=== PATIENT | male | born 1950 | race Hispanic/Latino ===

== ENCOUNTER 2021-02-23 07:11 | Inpatient (IN) | payer MEDICARE, MEDICAID ==
[2021-02-23] MEDS ORDERED: Dextrose 5% in Water 1,000 ML IV PRN (07:45)
[2021-02-23] MEDS ORDERED: Dextrose 50% Abboject 50 ML SYRINGE SLOW IVP PRN (07:45)
[2021-02-23] MEDS ORDERED: HumaLOG 300 UNITS/3 ML VIAL SC PRN (07:45)
[2021-02-23] MEDS: predniSONE 20 MG TAB PO SCH (09:11)
[2021-02-23 09:52] VITALS: BMI 18.2
[2021-02-23] MEDS: Azithromycin 500 MG in Sodium Chloride 0.9% 250 ML 250 ML IVPB SCH (10:03)
[2021-02-23] MEDS ORDERED: Fluticasone Propionate Nasal Spray 16 gm Bottle NASAL PRN (18:39)
[2021-02-23] MEDS ORDERED: Ondansetron ODT 4 MG TAB PO PRN (18:41)
[2021-02-23] MEDS: Acetaminophen 325 MG TAB PO PRN (20:14)
[2021-02-23] MEDS: Lisinopril 20 MG TAB PO SCH (20:17)
[2021-02-23] MEDS: Famotidine 20 MG TAB PO SCH (20:17)
[2021-02-23 20:53] LABS: SARS-CoV-2 PCR by NAA Not Detected (NotDetected)
[2021-02-24 04:43] LABS: #Eosinphils 0.1 10x3/uL (0.0-0.5); #Monocytes 1.5 10x3/uL (0.0-1.1); #Neutrophils 8.6 10x3/uL (1.5-8.4); %Basophils 0.2 % (0.0-2.0); %Eosinophils 0.5 % (0.0-6.0); %Lymphocytes 19.7 % (18.0-47.0); %Monocytes 11.6 % (0.0-10.0); %Neutrophils 67.7 % (40.0-75.0); Hemoglobin 10.2 g/dL (13.5-17.5); Mean Corpuscular HGB CONC 32.2 g/dL (32.0-36.0); Mean Corpuscular Hemoglobin 29.3 pg (27.0-33.0); Mean Corpuscular Volume 91.1 fl (81.2-95.1); Mean Platelet Volume 10.6 fl (7.4-10.4); Platelet Count 267 10x3/uL (150-450); RBC Distribution Width 14.8 % (11.5-14.5); Red Blood Cell (RBC) Count 3.48 10x6/uL (4.32-5.72); White Blood Cell (WBC) Count 12.7 10x3/uL (3.5-10.5)
[2021-02-24 05:13] LABS: Anion Gap 10 mmol/L (10-20); BUN (Urea Nitrogen) 25 mg/dL (8.4-25.7); Calc. Creatinine Clearance 50 mL/min (70-130); Carbon Dioxide 29 mmol/L (23-31); Chloride 103 mmol/L (98-107); Glucose 97 mg/dL (80-115); Potassium 4.1 mmol/L (3.5-5.1); Sodium 138 mmol/L (136-145)
[2021-02-24] MEDS: predniSONE 20 MG TAB PO SCH (08:10)
[2021-02-24] MEDS: Aspirin 81 mg Enteric Coated Tablet PO SCH (08:10)
[2021-02-24] MEDS: Azithromycin 500 MG in Sodium Chloride 0.9% 250 ML 250 ML IVPB SCH (08:11)
[2021-02-24] MEDS: Lisinopril 20 MG TAB PO SCH ×2 (08:11→21:14)
[2021-02-24] MEDS: Famotidine 20 MG TAB PO SCH ×2 (08:11→21:14)
[2021-02-24] MEDS: Enoxaparin Sodium 40 MG/0.4 ML SYRINGE SC SCH (08:12)
[2021-02-24] MEDS: Acetaminophen 325 MG TAB PO PRN (21:15)
[2021-02-25 05:18] LABS: #Eosinphils 0.2 10x3/uL (0.0-0.5); #Monocytes 1.2 10x3/uL (0.0-1.1); #Neutrophils 7.2 10x3/uL (1.5-8.4); %Basophils 0.3 % (0.0-2.0); %Eosinophils 1.3 % (0.0-6.0); %Lymphocytes 24.3 % (18.0-47.0); %Monocytes 10.8 % (0.0-10.0); Hemoglobin 10.4 g/dL (13.5-17.5); Mean Corpuscular Hemoglobin 29.2 pg (27.0-33.0); Mean Corpuscular Volume 91.3 fl (81.2-95.1); Platelet Count 286 10x3/uL (150-450); RBC Distribution Width 14.5 % (11.5-14.5); Red Blood Cell (RBC) Count 3.56 10x6/uL (4.32-5.72); White Blood Cell (WBC) Count 11.4 10x3/uL (3.5-10.5)
[2021-02-25 05:32] LABS: Anion Gap 11 mmol/L (10-20); BUN (Urea Nitrogen) 31 mg/dL (8.4-25.7); Calc. Creatinine Clearance 50 mL/min (70-130); Carbon Dioxide 29 mmol/L (23-31); Chloride 100 mmol/L (98-107); Glucose 92 mg/dL (80-115); Potassium 4.4 mmol/L (3.5-5.1); Sodium 136 mmol/L (136-145)
[2021-02-25] MEDS: Lisinopril 20 MG TAB PO SCH ×2 (09:24→22:22)
[2021-02-25] MEDS: predniSONE 20 MG TAB PO SCH (09:24)
[2021-02-25] MEDS: Famotidine 20 MG TAB PO SCH ×2 (09:24→22:22)
[2021-02-25] MEDS: Aspirin 81 mg Enteric Coated Tablet PO SCH (09:24)
[2021-02-25] MEDS: Azithromycin 500 MG in Sodium Chloride 0.9% 250 ML 250 ML IVPB SCH (09:25)
[2021-02-25] MEDS: Enoxaparin Sodium 40 MG/0.4 ML SYRINGE SC SCH (09:25)
[2021-02-25] MEDS: Acetaminophen 325 MG TAB PO PRN (22:22)
[2021-02-26 06:39] LABS: #Eosinphils 0.1 10x3/uL (0.0-0.5); #Monocytes 1.3 10x3/uL (0.0-1.1); #Neutrophils 8.6 10x3/uL (1.5-8.4); %Basophils 0.1 % (0.0-2.0); %Eosinophils 0.5 % (0.0-6.0); %Lymphocytes 15.6 % (18.0-47.0); %Neutrophils 72.5 % (40.0-75.0); Hemoglobin 9.9 g/dL (13.5-17.5); Mean Corpuscular HGB CONC 32.8 g/dL (32.0-36.0); Mean Corpuscular Hemoglobin 29.4 pg (27.0-33.0); Mean Corpuscular Volume 89.6 fl (81.2-95.1); Mean Platelet Volume 10.9 fl (7.4-10.4); Platelet Count 296 10x3/uL (150-450); RBC Distribution Width 14.6 % (11.5-14.5); Red Blood Cell (RBC) Count 3.37 10x6/uL (4.32-5.72); White Blood Cell (WBC) Count 11.8 10x3/uL (3.5-10.5)
[2021-02-26 07:07] LABS: Anion Gap 15 mmol/L (10-20); BUN (Urea Nitrogen) 39 mg/dL (8.4-25.7); Calc. Creatinine Clearance 39 mL/min (70-130); Calcium 9.1 mg/dL (7.8-10.44); Carbon Dioxide 27 mmol/L (23-31); Chloride 103 mmol/L (98-107); Glucose 131 mg/dL (80-115); Potassium 4.7 mmol/L (3.5-5.1); Sodium 140 mmol/L (136-145)
[2021-02-26 08:04] VITALS: TEMP 98.1
[2021-02-26] MEDS: predniSONE 20 MG TAB PO SCH (08:28)
[2021-02-26] MEDS: Famotidine 20 MG TAB PO SCH (08:28)
[2021-02-26] MEDS: Lisinopril 20 MG TAB PO SCH (08:28)
[2021-02-26] MEDS: Enoxaparin Sodium 40 MG/0.4 ML SYRINGE SC SCH (08:28)
[2021-02-26] MEDS: Azithromycin 500 MG in Sodium Chloride 0.9% 250 ML 250 ML IVPB SCH (08:28)
[2021-02-26] MEDS: Aspirin 81 mg Enteric Coated Tablet PO SCH (08:28)
[2021-02-26 15:34] VITALS: BP 133/66
== END 2021-02-26 17:17 | disposition home or self-care (01) | DRG 190 ==
LOC: CSHERS 07:11 → CSHTELE 08:36
PROVIDERS: ADMIT Family Medicine; ATTEND Internal Medicine
DX: J44.1 Chronic obstructive pulmonary disease with (acute) exacerbation (principal); J96.01 Acute respiratory failure with hypoxia; E43 Unspecified severe protein-calorie malnutrition; Z68.1 Body mass index [BMI] 19.9 or less, adult; Z20.822 Contact with and (suspected) exposure to COVID-19; I10 Essential (primary) hypertension; Z98.42 Cataract extraction status, left eye; Z98.41 Cataract extraction status, right eye; F17.210 Nicotine dependence, cigarettes, uncomplicated; Z79.82 Long term (current) use of aspirin; Z79.52 Long term (current) use of systemic steroids; Z79.899 Other long term (current) drug therapy; F10.10 Alcohol abuse, uncomplicated
CPT/HCPCS: 36416; 80048; 85025; 87635; 94640; 94760; 99285; J0456; J1650; J7050; J7512; J7620; U0003; U0005